=== PATIENT | female | born 1970 | race Caucasian/White ===

== ENCOUNTER → 2018-02-17 | Outpatient (CLI) | payer MEDICAID | LOC: COL.RAD 12:29 | DX: H90.42 Sensorineural hearing loss, unilateral, left ear, with unrestricted hearing on the contralateral side (principal); Z98.890 Other specified postprocedural states | CPT/HCPCS: A9585 ==

== ENCOUNTER 2019-07-15 09:52 | Emergency (ER) | payer MEDICAID ==
[~2019-07-15] VITALS: Ht 165.1 cm; Wt 77.7 kg
[2019-07-15 09:57] VITALS: BP 112/80; TEMP 97.1
[2019-07-15 10:53] VITALS: PULSE 107
== END 2019-07-15 10:53 | disposition home or self-care (01) ==
LOC: COL.ER 09:52
DX: M25.561 Pain in right knee (principal); G89.29 Other chronic pain; W19.XXXA Unspecified fall, initial encounter; Y92.009 Unspecified place in unspecified non-institutional (private) residence as the place of occurrence of the external cause

== ENCOUNTER → 2019-07-22 | Outpatient (CLI) | payer MEDICAID | LOC: MC.RAD 07:00 | DX: Z12.31 Encounter for screening mammogram for malignant neoplasm of breast (principal) ==

== ENCOUNTER 2020-01-25 10:00 | Outpatient (RCR) | payer MEDICAID | END 2020-03-18 | disposition home or self-care (01) | LOC: MKS.ESL.PT | DX: M22.2X1 Patellofemoral disorders, right knee (principal) ==